=== PATIENT | female | born 1985 | race Caucasian/White ===

== ENCOUNTER 2023-11-09 12:06 | Day surgery (SDC) | payer OTHER ==
[~2023-11-09] VITALS: Ht 165.1 cm; Wt 88.5 kg
[2023-11-09] VITALS (11 sets, daily range): BP systolic 111–130; BP diastolic 58–99
[~2023-11-09 12:06] MED LIST: AMOX500 PO; HYDACE10B PO; HYDACE25S PR; HYDACE5 PO; HYDCOR2.5C PR; IBUP200; NAPR500 PO; PENVK500 PO
--- NOTE | 2023-11-09 13:23 | NUR ---
Ambulatory in Day Surgery History, Chart, Medications and Allergies reviewed before start of procedure. Pre-Op teaching done. Pt verbalizes understanding.
[2023-11-09 13:52] LABS: BASOPHILS ABSOLUTE AUTO 0.04 K/mm3 (0.00-0.23); BASOPHILS PERCENT AUTO 1 % (0-2); EOSINOPHILS ABSOLUTE AUTO 0.19 K/mm3 (0.00-0.68); EOSINOPHILS PERCENT AUTO 2 % (0-6); Hematocrit 39.8 % (33.0-51.0); Hemoglobin 13.5 g/dL (11.5-16.0); IMMATURE GRAN ABSOLUTE AUTO 0.03 K/mm3 (0.00-0.10); IMMATURE GRAN PERCENT AUTO 0 % (0-1); LYMPHOCYTES ABSOLUTE AUTO 2.21 K/mm3 (0.84-5.20); LYMPHOCYTES PERCENT AUTO 27 % (21-46); MONOCYTES ABSOLUTE AUTO 0.51 K/mm3 (0.16-1.47); MONOCYTES PERCENT AUTO 6 % (4-13); Mean Corpuscular HGB 29.2 pg (26.0-34.0); Mean Corpuscular HGB Conc 33.9 g/dL (31.5-36.5); Mean Corpuscular Volume 86 fL (80-100); Mean Platelet Volume 11.1 fL (9.1-12.4); NEUTROPHILS PERCENT AUTO 63 % (41-73); Platelet Count 210 K/mm3 (150-400); RDW Coefficient Variation 13.1 % (11.7-14.2); RDW Standard Deviation 40.3 fL (35.1-46.3); Red Blood Cell Count 4.62 M/mm3 (3.80-5.20); White Blood Cell Count 8.08 K/mm3 (4.00-11.30)
--- NOTE | 2023-11-09 18:18 | NUR ---
SHIFT SUMMARY PT ARRIVED TO THE FLOOR AT 1715, EXOSEN BANDAGE CDI. PT ARRIVED TO THE FLOOR WITH THE URGENCY TO URINATE, AFTER THE CATHETER WAS REMOVED IN POST-OP. C/O SEVERE PAIN, PROVIDER NOTIFIED, AND NEW ORDERS OBTAINED. MEDICATED PER THE EMAR. PT TOLERATING WELL. FAMILY IS AT THE BS. CALL LIGHT WITHIN REACH, BED IN THE LOWEST POSITION. WILL REPORT TO ONCOMING NURSE.
[2023-11-10 00:29] VITALS: BP 111/77
[2023-11-10 04:49] VITALS: BP 102/67
[2023-11-10 04:50] LABS: BASOPHILS ABSOLUTE AUTO 0.01 K/mm3 (0.00-0.23); BASOPHILS PERCENT AUTO 0 % (0-2); EOSINOPHILS PERCENT AUTO 0 % (0-6); Hematocrit 39.8 % (33.0-51.0); Hemoglobin 13.3 g/dL (11.5-16.0); IMMATURE GRAN ABSOLUTE AUTO 0.03 K/mm3 (0.00-0.10); IMMATURE GRAN PERCENT AUTO 0 % (0-1); LYMPHOCYTES ABSOLUTE AUTO 0.81 K/mm3 (0.84-5.20); LYMPHOCYTES PERCENT AUTO 9 % (21-46); MONOCYTES PERCENT AUTO 5 % (4-13); Mean Corpuscular HGB Conc 33.4 g/dL (31.5-36.5); Mean Corpuscular Volume 87 fL (80-100); Mean Platelet Volume 10.9 fL (9.1-12.4); NEUTROPHILS ABSOLUTE AUTO 7.45 K/mm3 (1.96-9.15); NEUTROPHILS PERCENT AUTO 86 % (41-73); Platelet Count 243 K/mm3 (150-400); RDW Coefficient Variation 12.8 % (11.7-14.2); RDW Standard Deviation 40.3 fL (35.1-46.3); Red Blood Cell Count 4.58 M/mm3 (3.80-5.20)
--- NOTE | 2023-11-10 05:30 | NUR ---
SHIFT SUMMARY POD 1 TOTAL LAP HYSTR c BILAT OOPHORECTOMY. NO ACUTE CHANGES OVERNIGHT. VS WNL FOR PT. TOLERATING ORALS. AMBULATES/TOILETS INDEPENDENTLY. YELLOW URINE, SCANT DRAINAGE IN ARJUN PADS. NO BM/FLATUS THIS SHIFT. LAP SITES x4 C/D/I, BRUISING NOTED. MEDICATED FOR PAIN PER EMAR, TOLERABLE PER PT. ANTICIPATED DISCHARGE LATER TODAY. CALL LIGHT WITHIN REACH, BED IN LOWEST POSITION, WILL REPORT TO DAY RN.
[2023-11-10 08:20] VITALS: BP 110/72
[2023-11-10] MEDS ORDERED: ESTR2 PO (09:17)
[2023-11-10] MEDS ORDERED: PROM25 PO (09:18)
[2023-11-10] MEDS ORDERED: SIME80CH PO (09:18)
[2023-11-10] MEDS ORDERED: IBUP800 PO (09:18)
--- NOTE | 2023-11-10 09:43 | NUR ---
DISCHARGE NOTE: PATIENT AND PATIENTS WERE EDUCATED ON DISCHARGE INSTRUCTIONS. BOTH VERBALIZED UNDERSTANDING OF INSTRUCTIONS AND HAD NO FURTHER QUESTIONS AT THIS TIME. BOTH IVS WERE TAKEN OUT AND WNL. PAIN IS MANAGED WITH PO PAIN MEDS. HER ABD HAS X4 LAP SITES WITH WOUND GLUE THAT ARE C/D/I. SHE IS TOLERATING PO INTAKE AND IS VOIDING. HER ARJUN PAD HAS SCANT AMOUNT OF BLOOD ON IT. PATIENT ALSO HAS ABD BINDER IN PLACE WELL. SHE IS DRESSED AND HAS HER PERSONAL ITEMS IN THE ROOM GATHERED. PATIENT IS GETTING WHEELCHAIRED OUT TO HER HUSBANDS CAR TO BE TAKEN HOME.
== END 2023-11-10 09:50 | disposition home or self-care (01) ==
LOC: ORSCMMR 12:06 → ORD 13:30 → ORSCMMR 13:30 → SURS 17:10 → ORSCMMR 11-10 09:50
PROVIDERS: Obstetrics & Gynecology
PROC: 0UT9FZZ Resection of Uterus, Via Natural or Artificial Opening With Percutaneous Endoscopic Assistance (ICD-10-PCS; principal; 2023-11-09 13:30)
PROC: 0UT2FZZ Resection of Bilateral Ovaries, Via Natural or Artificial Opening With Percutaneous Endoscopic Assistance (ICD-10-PCS; principal; 2023-11-09 13:30)
PROC: 0U5F4ZZ Destruction of Cul-de-sac, Percutaneous Endoscopic Approach (ICD-10-PCS; principal; 2023-11-09 13:30)
DX: D06.0 Carcinoma in situ of endocervix (principal); N94.6 Dysmenorrhea, unspecified; N80.03 Adenomyosis of the uterus; N92.1 Excessive and frequent menstruation with irregular cycle; R87.810 Cervical high risk human papillomavirus (HPV) DNA test positive; N94.10 Unspecified dyspareunia; R10.2 Pelvic and perineal pain; N80.30 Endometriosis of pelvic peritoneum, unspecified; D25.9 Leiomyoma of uterus, unspecified; N83.12 Corpus luteum cyst of left ovary
CPT/HCPCS: 36415; 85025; 86850; 86900; 86901; 88305; 88307; 94762; A9270; J0690; J1100; J1170; J1885; J2405; J2704; J2795; J7120